=== PATIENT | female | born 1945 | race African-American/Black ===

== ENCOUNTER 2017-03-06 23:06 | Emergency (ER) | payer MEDICARE, OTHER ==
[~2017-03-06] VITALS: Ht 167.6 cm; Wt 94.0 kg
[2017-03-06 23:23] VITALS: Ht 167.6 cm; Wt 94.0 kg
[2017-03-07] MEDS ORDERED: IPRATROPIUM (NEB) 0.5 MG/2.5 ML AMP NEB STA
[2017-03-07] MEDS ORDERED: ALBUTEROL 0.083% (NEB) 2.5 MG/3 ML AMP NEB STA
[2017-03-07 00:22] VITALS: BP 171/80; PULSE 89; RESP 19; TEMP 98.6
[2017-03-07 00:33] LABS: BASOPHILS % 0.7 % (0.0-2.0); EOSINOPHILS # 0.1 10^3/ul (0.0-0.5); EOSINOPHILS % 1.8 % (0.0-7.0); HEMATOCRIT 33.7 % (37.0-47.0); HEMOGLOBIN 10.9 g/dl (12.0-16.0); LYMPHOCYTES # 1.5 10^3/ul (0.8-2.9); LYMPHOCYTES % 26.9 % (15.0-51.0); MEAN CORPUSCULAR HEMOGLOBIN 28.6 pg (29.0-33.0); MEAN CORPUSCULAR HGB CONC 32.3 g/dl (32.0-37.0); MEAN CORPUSCULAR VOLUME 88.5 fl (82.0-101.0); MEAN PLATELET VOLUME 9.4 fl (7.4-10.4); MONOCYTE # 0.6 10^3/ul (0.3-0.9); MONOCYTES % 10.7 % (0.0-11.0); NEUTROPHIL # 3.4 10^3/ul (1.6-7.5); NEUTROPHILS % 59.5 % (39.0-77.0); PLATELET COUNT 199 10^3/UL (140-415); RED BLOOD COUNT 3.81 10^6/ul (4.20-5.40); WHITE BLOOD COUNT 5.7 10^3/ul (4.8-10.8)
--- NOTE | 2017-03-07 00:45 | RADRPT ---
PROCEDURE: XR Chest. CLINICAL INDICATION: Chest pain TECHNIQUE: AP Portable chest. COMPARISON: No pertinent prior examinations were submitted for comparison. FINDINGS: There is mild to moderate cardiomegaly. The lungs are clear. The osseous structures are unremarkab le. IMPRESSION: No acute findings. RPTAT: HIKT .Shahid Camacho MD, MD Date Time Electronically viewed and signed by .Shahid Camacho MD, MD on 03/07/2017 00:45 .T/
[2017-03-07 00:47] LABS: INR 1.02; PROTIME 13.4 Sec (12.2-14.2)
[2017-03-07 00:51] LABS: ANION GAP 18 (8-16); BLOOD UREA NITROGEN 18 mg/dl (7-20); CALCIUM 9.2 mg/dl (8.4-10.2); CARBON DIOXIDE 28 mmol/L (21-31); CHLORIDE 103 mmol/L (97-110); CREATININE 0.79 mg/dl (0.44-1.00); GLUCOSE 105 mg/dl (70-220); POTASSIUM 4.1 mmol/L (3.5-5.1); SODIUM 145 mmol/L (135-144)
[2017-03-07 01:03] LABS: TROPONIN-I < 0.012 ng/ml (0.00-0.12)
--- NOTE | 2017-03-07 01:17 | ERD ---
ER Documentation Chief Complaint Date/Time DATE: 03/07/17 TIME: 01:14 Chief Complaint c/o chills that started today, coughing also HPI This is a 72-year-old female who presents to the ER for evaluation of chills and mild coughing which started approximately 4 hours prior to arrival. She denies any fevers associated with this. She denies any chest pain but came to the emergency room for further evaluation. She denies any aggravating factors for her symptoms or any relieving factors for her symptoms at this time ROS All systems reviewed and are negative except as per history of present illness. Allergies Allergies: Coded Allergies: No Known Allergy (Unverified , 03/07/17) PMhx/Soc Medical and Surgical Hx: pt denies Medical Hx, pt denies Surgical Hx History of Surgery: No Anesthesia Reaction: No Hx Neurological Disorder: No Hx Respiratory Disorders: No Hx Cardiac Disorders: No Hx Psychiatric Problems: No Hx Miscellaneous Medical Probl: No Hx Alcohol Use: No Hx Substance Use: No Hx Tobacco Use: No Smoking Status: Never smoker Physical Exam Vitals Vital Signs Date Time Temp Pulse Resp B/P Pulse Ox O2 Delivery O2 Flow Rate FiO2 03/07/17 00:22 98.6 89 19 171/80 100 Room Air 03/07/17 00:16 79 20 21 03/06/17 23:23 99.2 91 20 195/100 97 Physical Exam Const: No acute distress Head: Atraumatic Eyes: Normal Conjunctiva ENT: Bilateral nasal congestion normal External Ears, Nose and Mouth. Neck: Full range of motion..~ No meningismus. Resp: Clear to auscultation bilaterally Cardio: Regular rate and rhythm, no murmurs Abd: Soft, non tender, non distended. Normal bowel sounds Skin: No petechiae or rashes Back: No midline or flank tenderness Ext: No cyanosis, or edema Neur: Awake and alert Psych: Normal Mood and Affect Result Diagram: 03/07/17 0015 03/07/17 0015 Results 24 hrs Laboratory Tests Test 03/07/17 00:15 White Blood Count 5.710^3/ul Red Blood Count 3.8110^6/ul Hemoglobin 10.9g/dl Hematocrit 33.7% Mean Corpuscular Volume 88.5fl Mean Corpuscular Hemoglobin 28.6pg Mean Corpuscular Hemoglobin Concent 32.3g/dl Red Cell Distribution Width 15.0% Platelet Count 97941^3/UL Mean Platelet Volume 9.4fl Neutrophils % 59.5% Lymphocytes % 26.9% Monocytes % 10.7% Eosinophils % 1.8% Basophils % 0.7% Nucleated Red Blood Cells % 0.0/100WBC Neutrophils # 3.410^3/ul Lymphocytes # 1.510^3/ul Monocytes # 0.610^3/ul Eosinophils # 0.110^3/ul Basophils # 0.010^3/ul Nucleated Red Blood Cells # 0.010^3/ul Prothrombin Time 13.4Sec Prothrombin Time Ratio 1.0 INR International Normalized Ratio 1.02 Activated Partial Thromboplast Time 28.0Sec Sodium Level 145mmol/L Potassium Level 4.1mmol/L Chloride Level 103mmol/L Carbon Dioxide Level 28mmol/L Anion Gap 18 Blood Urea Nitrogen 18mg/dl Creatinine 0.79mg/dl Glucose Level 105mg/dl Calcium Level 9.2mg/dl Troponin I < 0.012ng/ml Current Medications Medications (Trade) Dose Ordered Sig/Walter Route PRN Reason Start Time Stop Time Status Last Admin Dose Admin Albuterol (Proventil 0.083% (Neb)) 5 mg ONCE STAT NEB 03/07/17 00:00 03/07/17 00:07 DC 03/07/17 00:15 Ipratropium [place] (Atrovent 0.02% (Neb)) 0.5 mg ONCE STAT NEB 03/07/17 00:00 03/07/17 00:07 DC 03/07/17 00:15 Procedures/MDM EKG: Rate/Rhythm: [Normal Sinus Rhythm] QRS, ST, T-waves: [No changes consistent w/ acute ischemia] Impression: [No evidence of ischemia or arrhythmia] Chest X-ray 1V Interpreted by me: Soft Tissue: No acute abnormalities Bones: No acute abnormalities Mediastinum/Cardiac Silhouette/Lungs: [No acute abnormalities] This 72-year-old female presents to the ER for evaluation of chills and a dry cough. When I evaluated this patient she was afebrile, not hypoxic and in no acute distress. She was having some coughing and I did give her breathing treatment which helped her symptoms. X-ray does not reveal any pneumonia and lab work does not show any leukocytosis however given this patient's age and onset of symptoms in early pneumonia cannot be rule out this time. The patient was given 750 milligrams p.o. of Levaquin will be discharged at this time with a prescription for Levaquin with instructions to follow-up with her primary care physician or return to ER if her symptoms worsen. Departure Diagnosis: Primary Impression: Acute upper respiratory infection Additional Impression: Chills Condition: Stable NICOLAS LOGAN DO Mar 07, 2017 01:17
[2017-03-07] MEDS ORDERED: LEVO750T25 PO (01:18)
[2017-03-07] MEDS ORDERED: LEVOFLOXACIN 750 MG TABLET PO ONE (01:30)
== END 2017-03-07 03:34 | disposition home or self-care (01) ==
LOC: E/R 23:06
DX: J06.9 Acute upper respiratory infection, unspecified (principal); R07.9 Chest pain, unspecified
CPT/HCPCS: 36415; 71010; 80048; 84484; 85025; 85610; 85730; 93005; 94664

== ENCOUNTER 2019-03-10 02:14 | Emergency (ER) | payer MEDICARE, OTHER ==
[~2019-03-10] VITALS: Ht 157.5 cm; Wt 90.0 kg
[~2019-03-10 02:14] MED LIST: IBUP-1542 PO; LEVO750T25 PO
[2019-03-10 02:16] VITALS: Ht 157.5 cm; Wt 90.0 kg
--- NOTE | 2019-03-10 03:42 | ERD ---
ER Documentation Chief Complaint Chief Complaint RIGHT LEG PAIN X SEVERAL YEARS HPI This is a 74-year-old female with no significant past medical history presents to the emergency department complaining of pain to her bilateral lower extremities for the past 1 day. Pain is 10/10 severity and constant. She took no medication for relief of symptoms. She reports a sedentary lifestyle. She denies any recent long travel. She denies any shortness of breath, fevers, chills, or other symptoms at this time. ROS All systems reviewed and are negative except as per history of present illness. Medications Home Meds Active Scripts Ibuprofen* (Motrin*) 600 Mg Tab, 600 MG PO Q6, #30 TAB Prov:REMBERTO CHAPMAN PA-C 03/10/19 Levofloxacin* (Levaquin*) 750 Mg Tablet, 750 MG PO DAILY for 5 Days, TAB Prov:NICOLAS LOGAN DO 03/07/17 Allergies Allergies: Coded Allergies: No Known Allergy (Unverified , 03/07/17) PMhx/Soc Medical and Surgical Hx: pt denies Medical Hx History of Surgery: Yes (GB SX DURING CHILDHOOD.) Anesthesia Reaction: No Hx Neurological Disorder: No Hx Respiratory Disorders: No Hx Cardiac Disorders: No Hx Psychiatric Problems: No Hx Miscellaneous Medical Probl: No Hx Alcohol Use: No Hx Substance Use: No Hx Tobacco Use: No Smoking Status: Never smoker FmHx Family History: No diabetes Physical Exam Vitals Vital Signs Date Temp Pulse Resp B/P (MAP) Pulse Ox O2 O2 Flow FiO2 Time Delivery Rate 03/10/19 97.9 92 18 123/79 98 Room Air 04:57 (94) 03/10/19 99.1 105 20 140/93 97 02:16 (109) Physical Exam Const: No acute distress Head: Atraumatic Eyes: Normal Conjunctiva ENT: Normal External Ears, Nose and Mouth. Neck: Full range of motion. No meningismus. Resp: Clear to auscultation bilaterally Cardio: Regular rate and rhythm, no murmurs Skin: No petechiae or rashes Back: No midline or flank tenderness Ext: 2+ pitting edema to the bilateral lower extremities. Mild bilateral calf tenderness. Patient is neurovascularly intact to the lower extremities bilaterally. Neur: Awake and alert Psych: Normal Mood and Affect Results 24 hrs Current Medications Medications Dose Sig/Walter Start Time Status Last (Trade) Ordered Route PRN Stop Time Admin Dose Reason Admin Ibuprofen 600 mg ONCE ONCE 03/10/19 DC 03/10/19 (Motrin) PO 04:00 03/10/19 03:47 04:01 Procedures/MDM 74-year-old female presents to the emergency department complaining of bilateral lower extremity pain for the past 1 day. There was some pitting edema noted on examination. Venous Doppler ordered and was pending, signed out to my colleague, MARI Hernandez. Patient's blood pressure was elevated (>120/80) but appears stable without evidence of hypertension emergency or urgency. The patient is to follow-up and pursue outpatient monitoring and therapy with their primary care physician within 1 week and return immediately if they have any new, worsening, or concerning symptoms. Disclaimer: Inadvertent spelling and grammatical errors are likely due to EHR/dictation software use and do not reflect on the overall quality of patient care. Also, please note that the electronic time recorded on this note does not necessarily reflect the actual time of the patient encounter. Ultrasound is negative. Patient given copy of results. Departure Diagnosis: Primary Impression: Bilateral leg pain Condition: Fair Additional Instructions: Follow up with your PCP within the next 1-3 days for a repeat evaluation. If you require a referral to a specialist, your Primary Care Provider may be able to provide this for you. In most patient cases, a referral is not required. If you have further questions regarding this matter, please ask your Primary Care Provider. Return the the emergency department immediately if symptoms worsen or change. If you have any questions regarding medications, ask your pharmacist or us before you leave. If any adverse reactions, occur while taking your medications, discontinue the treatment and return to the emergency department immediately. If any new or worsening symptoms, uncontrolled fevers, or other unexplained symptoms occur, return to the emergency department immediately. Take your medications as directed, and complete the entire course of treatment. REMBERTO CHAPMAN PA-C Mar 10, 2019 03:42 CARL OLMEDO PA-C Mar 10, 2019 07:33
[2019-03-10] MEDS ORDERED: IBUPROFEN 600 MG TAB PO ONE (04:00)
[2019-03-10 04:57] VITALS: BP 123/79; PULSE 92; RESP 18
== END 2019-03-10 07:41 | disposition home or self-care (01) ==
LOC: FTE 02:14
DX: M79.604 Pain in right leg (principal); M79.605 Pain in left leg
CPT/HCPCS: 93970; 99282